=== PATIENT | male | born 1965 | race Caucasian/White ===

== ENCOUNTER 2018-11-17 13:30 | Outpatient (RCR) | payer OTHER, SELFPAY ==
--- NOTE | 2018-10-07 15:35 | HP.PTEVAL_ITS ---
Patient's Visit Information JUNE CALDERÓN is a 53 year old M referred to Physical Therapy by PHOEBE VERNON with a diagnosis of SPINAL STENOSIS,CERVICAL. Date of Evaluation: 10/07/18 Physical Therapist: Prosper Calderon, PT, Cert MDT, OCS - Visit Plan Frequency: 1-2x /Week Duration: 4 Weeks Plan: S/P CERVICAL LAMIOPLASTY. PT INTERVETIONS CERVICAL ROM/POSTURAL EX'S,ISOMTRICS ,BUE STRENGTHENING - Subjective Findings: This 53 y/o male presents to physical therapy with with cervical laminoplasty . Patient was involved in fall after running sprints August 01 fracture spine as well as from spinal stenosis,prior to surgery patient using cervical collar.Pateint [facility] trauma had diagnostics. This underwent s/p cervical laninoplasty done September 15 at [facility] done [employer]. D/C to home intially had precautions driving min cervical ROM. Seen 2weeks fabiano to start PT cervical ROM ,15-20# ea arm. Denies [place] /tinnutis/nausea. Pateint c/o parathesia in left hand . Patient sleeping good. Pateint goals to start running track and field sprints and return to training at college. Patient condition surgery affects daily function and RTS . Patient surgery affects QOL. SOCAIL: marrried. VOCATION: correctional officer sergeant. HOBBIES: Runs and competes track - Pain Bilateral Neck Pain Intensity (Out of 10): 2 Pain Intensity Range: 10 - Objective POSTURE: WFL. SKIN: inscion well aprroxaimate. NEURO: c/o parathesia left hand , light touch intact, reflexes C5-6-7 2/3. BUE: WFL. MMT:4/5 grossly left wrist flexion 4-/5. [employer]ON [employer] ASSISTANT STRENGTH: right 100# ,left 90# dynamoter. CERVICAL ROM: flexion mod loss,lateral flexion/rotation mod loss extension mod loss. PALAPTION: tender UT/levators - Goals Goal 1:: Patient to be Independant with HEP. Goal Time Frame: 4-6 Weeks Goal 2:: Patient Indeepndant with POSTURE for ADL'S Goal Time Frame: 4-6 Weeks Goal 3:: Patient to improve cervical ROM with min /mod loss to improve function. Goal Time Frame: 4-6 Weeks Goal 4:: Patient to improve neck owestry score by 5-10 points to improve QOL Goal Time Frame: 4-6 Weeks Goal 5:: Patient to improve ability to perform ADLS' and return to sports simulations Goal Time Frame: 4-6 Weeks - Rehabilitation Potential Physical Therapy Diagnosis: This 53 y/o male presents to physical therapy with cervical lamioplasty surgery fro inury with current impairments with stiffness cervical ROM,STRENGTH and return to hobbies and daily function. Rehabilitation Potential: Good - Anticipated Interventions Patient/Client Instruction: Educate patient on: Condition, Plan of Care For the Purpose of:: To decrease pain, To increase ROM, To improve muscle performance and motor function, To increase tolerance to activity/conditio n/position, To improve performance and independence with ADL's, To improve ability of physical actions for home/community/work/leisure, To improve health of tissue, To decrease soft tissue restriction, To increase flexibility/ROM, To improve ability to perform tasks related to life management Therapeutic Exercise to Include: Strength training, Postural training, Flexibilty training, Active ROM For the Purpose of:: To decrease pain, To increase ROM, To improve muscle performance and motor function, To improve ability to perform ADL's, To increase tolerance to activity/condition/position, To improve ability of physical actions for home/community/work/leisure, To improve health of tissue, To decrease soft tissue restriction, To increase flexibility/ROM Cryotherapy (ice pack, ice massage): Yes Thermo therapy (hot pack): Yes For the Purpose of:: To decrease pain, To improve nutrient delivery to tissue, To increase oxygenation perfusion, To improve health of tissue, To decrease soft tissue restriction Thank you for the opportunity to evaluate your patient. For Medicare and Medicare HMO plans, please review the plan of care and approve it. It will need to be FAXED BACK to us at [phone] for Medicare purposes. For Medicare only, by signing this I certify the plan of care. Please let me know if there are questions or concerns regarding this plan of care. Physician Signature: Date:
--- NOTE | 2018-12-28 13:50 | HP.PTDCSUM_ITS ---
HP - PT D/C Summary It has been my pleasure to treat JUNE CALDERÓN under orders from PHOEBE VERNON, for the diagnosis of SPINAL STENOSIS,CERVICAL for a total of 5 visit(s). Discharge Date: 11/17/18 Please see the following information for a summary of their discharge status. - Subjective Subjective: SEEN DR RELEASED PATIENT FROM WITHOUT RESTRICTION. TODAYS GOAL REVIEW PROGRAM FROM FRONT END ALIGNMENT SPECIALIST - Pain Bilateral Neck Pain Intensity (Out of 10): 0 - Overall Improvement % Improvement: 75 - Objective Objective/Function: POSTURE: WFL. CERVICAL ROM: MOD LIMITED FLEXI ON/ROTATION/LATERAL FLEXION. MMT: QUADS/HAMS/HIP/ANKLE 4/5 - Goals Goal 1:: Patient to be Independant with HEP. Goal Progress: Goal Met Goal 2:: Patient Indeepndant with POSTURE for ADL'S Goal Progress: Goal Met Goal 3:: Patient to improve cervical ROM with min /mod loss to improve function. Goal Progress: Goal Met Goal 4:: Patient to improve neck owestry score by 5-10 points to improve QOL Goal Progress: Goal Met Goal 5:: Patient to improve ability to perform ADLS' and return to sports simulations Goal Progress: Goal Met - Plan Plan: D/C TO OWN GYM PROGRAM - D/C Information If there are questions or concerns regarding this patient's physical therapy, please feel free to call me at [phone]. Thank you for the referral of this patient. Sincerely, Prosper Calderon, PT, Cert MDT, OCS
== END 2018-11-17 19:00 | disposition home or self-care (01) ==
LOC: PT 13:30
PROVIDERS: Family Provider Family Medicine; PCP Family Medicine
DX: M48.02 Spinal stenosis, cervical region (principal)
CPT/HCPCS: 97110; 97161